=== PATIENT | female | born 1980 | race Caucasian/White ===

== ENCOUNTER 2022-12-01 06:26 | Emergency (ER) | payer SELFPAY ==
[2022-12-01] MEDS ORDERED: diphenhydrAMINE 50 MG/ML VIAL ONE (07:08)
[2022-12-01] MEDS ORDERED: Acetaminophen 500 MG TAB ONE (07:08)
[2022-12-01] MEDS ORDERED: Ketorolac Tromethamine 30 MG/ML VIAL ONE (07:08)
[2022-12-01] MEDS ORDERED: Metoclopramide HCl 10 MG/2 ML VIAL ONE (07:08)
== END 2022-12-01 08:41 | disposition home or self-care (01) ==
LOC: ERS 06:26
DX: R51.9 Headache, unspecified (principal)
CPT/HCPCS: 96365; 96375; J1200; J1885; J2765